=== PATIENT | male | born 1980 | race Two or more races ===

== ENCOUNTER 2018-04-04 19:22 | Emergency (ER) | payer SELFPAY ==
[2018-04-04 19:24] VITALS: BP 150/100; PULSE 119; RESP 16; TEMP 98.2; O2SAT 98
[2018-04-04] MEDS ORDERED: Tdap Vaccine 0.5 ml Vial (10-64 yrs) IM ONE ×2 (20:16→20:34)
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
--- NOTE | 2018-04-05 09:04 | CT ---
Date of service: 04/04/2018 PROCEDURE: CT HEAD WITHOUT CONTRAST. HISTORY: head injury COMPARISON: None available. TECHNIQUE: Axial computed tomography images were obtained through the head/brain without intravenous contrast. Radiation dose: Total exam DLP = 1649.75 mGy-cm. This CT exam was performed using one or more of the following dose reduction techniques: Automated exposure control, adjustment of the mA and/or kV according to patient size, and/or use of iterative reconstruction technique. FINDINGS: HEMORRHAGE: No intracranial hemorrhage. BRAIN: No mass effect or edema. No atrophy or chronic microvascular ischemic changes. VENTRICLES: Unremarkable. No hydrocephalus. CALVARIUM: Unremarkable. PARANASAL SINUSES: Unremarkable as visualized. No significant inflammatory changes. MASTOID AIR CELLS: Unremarkable as visualized. No inflammatory changes. OTHER FINDINGS: None. IMPRESSION: Normal CT of the Head. No intracranial mass, hemorrhage or evidence of acute infarct. The preliminary findings for this examination were reported by [facility] at 9:40 a.m. on 04/04/2018. There is concurrence of this report with the preliminary findings.
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
== END 2018-04-04 21:27 | disposition left against medical advice (07) ==
LOC: H.ER 19:22 → MERGE 19:22 → H.ER 21:27
DX: S01.511A Laceration without foreign body of lip, initial encounter (principal); S09.90XA Unspecified injury of head, initial encounter; S01.512A Laceration without foreign body of oral cavity, initial encounter; Y04.0XXA Assault by unarmed brawl or fight, initial encounter; Y92.89 Other specified places as the place of occurrence of the external cause; R00.0 Tachycardia, unspecified